=== PATIENT | male | born 1960 ===

== ENCOUNTER 2023-12-05 08:00 | Inpatient (IN) | payer OTHER ==
[~2023-12-05] VITALS: Ht 185.4 cm; Wt 106.6 kg
[2023-12-05] MEDS ORDERED: LOSARTAN POTAS100 MG (08:11)
[2023-12-05] MEDS ORDERED: [UNRECOGNIZED DRUG - OTHER] (08:12)
[2023-12-05] MEDS ORDERED: LIPITOR40 M1 (08:12)
[2023-12-05] MEDS ORDERED: [UNRECOGNIZED DRUG - OTHER] (08:23)
[2023-12-05 08:49] LABS: HEMATOCRIT 39.1 % (39.0-48.0); HEMOGLOBIN 13.3 g/dL (13-16.00); MEAN CORPUSCULAR HEMOGLOBIN 31.9 pg (27.00-32.0); PLATELET COUNT 280 K/uL (150-450); RED BLOOD COUNT 4.16 M/uL (4.00-6.00); RED CELL DISTRIBUTION WIDTH 15.1 % (11.5-14.5)
[2023-12-05 09:03] LABS: PH,URINE 5.5 (5.0-8.0); URINE APPEARANCE Cloudy; URINE BILIRRUBIN Negative (NEGATIVE); URINE BLOOD Negative; URINE COLOR Yellow; URINE GLUCOSE Negative (NEGATIVE); URINE KETONE Negative (NEGATIVE); URINE LEUKOCYTE Negative; URINE NITRATE Negative; URINE PROTEIN Negative (NEGATIVE); URINE UROBILINOGEN 0.2 E.U./dl
[2023-12-05 09:19] LABS: INR 0.96; PARTIAL THROMBOPLASTIN TIME 25.5 SECONDS (22.0-34.0); PROTHROMBIN TIME 10.5 SECONDS (9.0-11.5)
[2023-12-05 09:28] LABS: URINE BACTERIA 2.5 uL (0.0-1933); URINE CAST 0.15 uL (0.0-1.40); URINE EPITHELIAL CELLS 0.1 uL (0.0-38.8); URINE RBC 1.2 uL (0.0-20.8); URINE WBC 1.5 uL (0.0-23.2)
[2023-12-05 09:32] LABS: CALCIUM 9.2 mg/dL (8.5-10.1); CREATININE SERUM 1.29 mg/dL (0.70-1.30); GFR 56.44; POTASSIUM 4.48 mEq/L (3.5-5.1)
[2023-12-09] MEDS ORDERED: ENOXAPARIN SODIUM 40 MG/0.4 ML SYRINGE SUBCUTANEO ONE (07:28)
[2023-12-09] MEDS ORDERED: CHLORHEXIDINE GLUCONATE 120 ML BOTTLE TOP ONE (07:28)
[2023-12-09] MEDS ORDERED: CEFAZOLIN SODIUM 1,000 MG VIAL ONE ×2 (07:28→15:41)
[2023-12-09] MEDS ORDERED: TRAVOPROST2.5 ML (08:45)
[2023-12-09] MEDS ORDERED: DORZOLAMIDE HCL10 ML (08:45)
[2023-12-09] MEDS ORDERED: TIMOLOL MALEATE5 M4 (08:45)
[2023-12-09] MEDS ORDERED: SUGAMMADEX SODIUM 200 MG/2 ML VIAL IV ONE ×2 (11:50→11:52)
[2023-12-09] MEDS ORDERED: MORPHINE SULFATE 4 MG/ML VIAL IV ONE ×2 (12:30→14:00)
[2023-12-09] MEDS ORDERED: DEXTROSE 5 %-0.45 % SOD CHLORD 1,000 ML IV SCH (13:03)
[2023-12-09] MEDS ORDERED: MORPHINE SULFATE 2 MG/ML CARTRIDGE IV PRN (13:15)
[2023-12-09] MEDS ORDERED: ONDANSETRON HCL 2 MG/ML VIAL IV PRN (13:15)
[2023-12-09] MEDS ORDERED: SIMETHICONE 125 MG CAPSULE PO ONE (15:41)
[2023-12-09 16:20] VITALS: BP 99/62; O2SAT 95
[2023-12-09] MEDS ORDERED: FAMOtidine 20 MG TABLET PO SCH (17:00)
[2023-12-09] MEDS ORDERED: CEFAZOLIN SODIUM 1,000 MG VIAL IV SCH (17:00)
[2023-12-09] MEDS ORDERED: DOCUSATE SODIUM 100MG CAP PO SCH (17:00)
[2023-12-09] MEDS ORDERED: SIMETHICONE 125 MG CAPSULE PO SCH (17:00)
[2023-12-10 00:09] VITALS: BP 101/61; O2SAT 98
[2023-12-10 07:54] LABS: HEMATOCRIT 27.1 % (39.0-48.0); MEAN CELL VOLUME 94.3 fL (80.0-100.00); MEAN CORPUSCULAR HEMOGLOBIN 32.2 pg (27.00-32.0); MEAN CORPUSCULAR HGB CONC 34.1 g/dl (32.0-36.0); PLATELET COUNT 205 K/uL (150-450); RED BLOOD COUNT 2.88 M/uL (4.00-6.00); RED CELL DISTRIBUTION WIDTH 14.6 % (11.5-14.5)
[2023-12-10 08:22] LABS: CALCIUM 7.7 mg/dL (8.5-10.1); CREATININE SERUM 1.3 mg/dL (0.70-1.30); GFR 55.94; POTASSIUM 4.28 mEq/L (3.5-5.1)
[2023-12-10 08:31] LABS: HEMOGLOBIN 9.3 g/dL (13-16.00)
[2023-12-10] MEDS ORDERED: ENOXAPARIN SODIUM 40 MG/0.4 ML SYRINGE SUBCUTANEO SCH (09:00)
[2023-12-10] MEDS ORDERED: LOSARTAN POTASSIUM 100 MG TABLET PO SCH (09:00)
[2023-12-10 09:02] VITALS: BP 104/60; O2SAT 99
[2023-12-10] MEDS ORDERED: OxyCODONE HCL/APAP UD (PERCOCET) PO PRN (10:00)
[2023-12-10] MEDS ORDERED: IRON FUM,PS/FOLIC/BCOMP,C NO.9 1 CAP CAPSULE PO SCH (12:00)
[2023-12-10 16:00] VITALS: BP 114/56; O2SAT 95
[2023-12-10 17:12] LABS: HEMATOCRIT 28.6 % (39.0-48.0); HEMOGLOBIN 9.5 g/dL (13-16.00); MEAN CELL VOLUME 95.3 fL (80.0-100.00); MEAN CORPUSCULAR HEMOGLOBIN 31.6 pg (27.00-32.0); MEAN CORPUSCULAR HGB CONC 33.1 g/dl (32.0-36.0); PLATELET COUNT 234 K/uL (150-450); RED CELL DISTRIBUTION WIDTH 14.3 % (11.5-14.5)
[2023-12-11 00:40] VITALS: BP 100/52; O2SAT 100
[2023-12-11 08:00] VITALS: BP 122/69; O2SAT 100
[2023-12-11 16:00] VITALS: BP 114/57; O2SAT 97
== END 2023-12-12 10:42 | disposition home or self-care (01) | DRG 708 ==
LOC: O/R 12-09 05:30 → SURG 12-09 05:30 → SURH 12-09 07:00 → SURG 12-09 12:59
PROVIDERS: Internal Medicine; ADMIT Urology; ATTEND Urology
PROC: 07BC4ZX Excision of Pelvis Lymphatic, Percutaneous Endoscopic Approach, Diagnostic (ICD-10-PCS; 2023-12-09)
PROC: 0VT04ZZ Resection of Prostate, Percutaneous Endoscopic Approach (ICD-10-PCS; principal; 2023-12-09 07:00)
DX: C61 Malignant neoplasm of prostate (principal)